=== PATIENT | male | born 1980 | race Two or more races ===

== ENCOUNTER 2020-10-27 17:22 | Emergency (ER) | payer MEDICAID ==
[~2020-10-27] VITALS: Ht 182.9 cm; Wt 113.4 kg
[2020-10-27] MEDS ORDERED: ACETAMINOPHEN 500 MG TAB PO ONE ×2 (17:54→18:00)
[2020-10-27] MEDS ORDERED: PROPOFOL 10 MG/ML 20 ML IV ONE (20:00)
[2020-10-27] MEDS ORDERED: KETOROLAC TROMETH 30 MG/ML 1ML VIAL IV ONE (20:00)
[2020-10-27] MEDS ORDERED: PROPOFOL 100 ML IV ONE (20:00)
[2020-10-27 23:13] VITALS: BP 138/91
== END 2020-10-28 00:10 | disposition home or self-care (01) ==
LOC: ER 17:24
DX: M24.411 Recurrent dislocation, right shoulder (principal); I10 Essential (primary) hypertension
CPT/HCPCS: 23650; 73020; 73030; 96374; 99152; 99285; J1885; J2704

== ENCOUNTER 2020-11-03 15:35 | Emergency (ER) | payer MEDICAID ==
[~2020-11-03] VITALS: Ht 182.9 cm; Wt 113.4 kg
[2020-11-03 16:23] VITALS: BP 145/99
== END 2020-11-03 16:25 | disposition home or self-care (01) ==
LOC: ER 15:35
DX: M25.511 Pain in right shoulder (principal); I10 Essential (primary) hypertension; Z87.828 Personal history of other (healed) physical injury and trauma; Z76.0 Encounter for issue of repeat prescription